=== PATIENT | male | born 1960 | race Caucasian/White ===

== ENCOUNTER 2019-02-18 12:25 | Emergency (ER) | payer OTHER ==
[~2019-02-18] VITALS: Ht 177.8 cm; Wt 60.3 kg
--- NOTE | 2019-02-18 13:03 | NUR ---
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
--- NOTE | 2019-02-18 13:14 | NUR ---
PT AMBULATORY WITH SON TO ROOM 21. PT C/O LEFT JAW/TOOTH PAIN FOR APPROX. 1.5 WEEKS. ANTERIOR NECK RED AND LEFT SIDE OF FACE SWOLLEN. MD AT BEDSIDE. PT AAO X 4 PER FAMILY. PT ALSO STATES DIFFICULTY SWALLOWING. PT DRESSED IN GOWN AND ATTACHED TO MONITOR. CALL LIGHT WITHIN REACH, SIDERAILS X [address], FAMILY AT BEDSIDE.
[2019-02-18] MEDS ORDERED: SODIUM CHLORIDE FLUSH 10ML SYR IVF ONE (13:30)
[2019-02-18 13:48] LABS: BASOPHILS # (AUTO) 0.03 x10^3/uL (0-0.1); BASOPHILS % (AUTO) 0 % (0-1); EOSINOPHILS # (AUTO) 0.01 x10^3/uL (0-0.4); EOSINOPHILS % (AUTO) 0 % (1-7); LYMPHOCYTES # (AUTO) 0.97 x10^3/uL (1-3.4); LYMPHOCYTES % (AUTO) 13 % (22-44); MD NO; MEAN CORPUSCULAR HEMOGLOBIN 29.5 pg (27.5-34.5); MEAN CORPUSCULAR HGB CONC 32.1 g/dL (33.2-36.2); MEAN CORPUSCULAR VOLUME 91.7 fL (81-97); MEAN PLATELET VOLUME 10.2 fL (7.4-10.4); MONOCYTES # (AUTO) 0.84 x10^3/uL (0.2-0.8); MONOCYTES % (AUTO) 12 % (2-9); NEUTROPHILS % (AUTO) 75 % (42-75); PLATELET COUNT 147 x10^3/uL (130-400); RED BLOOD COUNT 4.69 x10^6/uL (4.38-5.82); RED CELL DISTRIBUTION WIDTH 16.8 % (9.4-14.8)
[2019-02-18 13:58] LABS: ALBUMIN 3.5 g/dL (3.4-5.0); ANION GAP 8 mmol/L (5-15); CALCIUM 8.7 mg/dL (8.5-10.1); CHLORIDE 109 mmol/L (98-107); CREATININE 1.21 mg/dL (0.7-1.3)
--- NOTE | 2019-02-18 14:32 | NUR ---
SPOKE WITH CT REGARDING CT SCAN, CT STATES DELAY.
--- NOTE | 2019-02-18 14:48 | NUR ---
PT AMBULATED TO RESTROOM WITH STEADY GAIT.
--- NOTE | 2019-02-18 14:50 | NUR ---
PT TO CT.
--- NOTE | 2019-02-18 15:03 | NUR ---
BREAK RN: PT UPRIGHT ON GURNEY AWAKE & COMFORTABLE, RESPONDS APPROP TO STAFF, NAD, COMFORT MEASURES PROVIDED, CALL LIGHT WITHIN REACH.
[2019-02-18] MEDS ORDERED: OMNIPAQUE 350 MG/ML, 100ML BOTTLE ONE (15:36)
--- NOTE | 2019-02-18 15:53 | NUR ---
ALL RESULTS BACK AT THIS TIME, CHART UP FOR RECHECK.
--- NOTE | 2019-02-18 16:00 | NUR ---
MD AT BEDSIDE TO DISCUSS TEST RESULTS. NEW ORDERS RECEIVED.
[2019-02-18 16:09] VITALS: BP 158/97
[2019-02-18] MEDS ORDERED: CEFTRIAXONE PMX 1GM/50ML 50 ML ONE (16:11)
--- NOTE | 2019-02-18 16:17 | NUR ---
PT MEDICATED PER MD ORDER, PLAN TO DISCHARGE HOME WHEN IV ABX ARE COMPLETED.
[2019-02-18] MEDS ORDERED: CEFTRIAXONE PMX 1GM/50ML 50 ML IVPB ONE (16:30)
--- NOTE | 2019-02-18 16:36 | NUR ---
PE MEDICATED PER MD ORDER, AWAITING D/C PAPERWORK.
--- NOTE | 2019-02-18 16:54 | NUR ---
Patient/Caregiver given discharge instructions and they have confirmed that they understand the instructions. Patient ambulatory with steady gait.
== END 2019-02-18 16:55 | disposition home or self-care (01) ==
LOC: ED 15:38
DX: L03.221 Cellulitis of neck (principal); K08.89 Other specified disorders of teeth and supporting structures; M19.90 Unspecified osteoarthritis, unspecified site; I10 Essential (primary) hypertension; M10.9 Gout, unspecified; G20 Parkinson's disease; Z87.891 Personal history of nicotine dependence
CPT/HCPCS: 36415; 70487; 70491; 80048; 82040; 85025; 96365; 99284; J0696; Q9967

== ENCOUNTER 2019-03-07 22:38 | Emergency (ER) | payer OTHER ==
[~2019-03-07] VITALS: Ht 172.7 cm; Wt 64.0 kg
--- NOTE | 2019-03-07 23:00 | NUR ---
ASSESSMENT MADE. ERP AT BEDSIDE.
[2019-03-07] MEDS ORDERED: LORazepam 2 MG/ML, 1ML ONE (23:13)
[2019-03-07] MEDS ORDERED: LISI-167 PO (23:23)
[2019-03-07] MEDS ORDERED: PANT40TA5 PO (23:23)
[2019-03-07] MEDS ORDERED: CARB1TAB22 PO (23:23)
[2019-03-07] MEDS ORDERED: ATEN25TA PO (23:23)
[2019-03-07] MEDS ORDERED: LORazepam 2 MG/ML, 1ML IM ONE (23:30)
[2019-03-07 23:32] LABS: ALANINE AMINOTRANSFERASE 11 U/L (12-78); ALBUMIN 3.8 g/dL (3.4-5.0); ANION GAP 10 mmol/L (5-15); CALCIUM 9.1 mg/dL (8.5-10.1); CHLORIDE 107 mmol/L (98-107); CREATININE 1.31 mg/dL (0.7-1.3)
[2019-03-07 23:37] LABS: ALKALINE PHOSPHATASE 90 U/L (45-117); BASOPHILS # (AUTO) 0.04 x10^3/uL (0-0.1); BASOPHILS % (AUTO) 1 % (0-1); EOSINOPHILS # (AUTO) 0.16 x10^3/uL (0-0.4); EOSINOPHILS % (AUTO) 2 % (1-7); LYMPHOCYTES # (AUTO) 1.44 x10^3/uL (1-3.4); LYMPHOCYTES % (AUTO) 18 % (22-44); MD NO; MEAN CORPUSCULAR HEMOGLOBIN 30.4 pg (27.5-34.5); MEAN CORPUSCULAR HGB CONC 33.1 g/dL (33.2-36.2); MEAN CORPUSCULAR VOLUME 91.7 fL (81-97); MEAN PLATELET VOLUME 9.9 fL (7.4-10.4); MONOCYTES # (AUTO) 0.79 x10^3/uL (0.2-0.8); MONOCYTES % (AUTO) 10 % (2-9); NEUTROPHILS # (AUTO) 5.48 x10^3/uL (1.8-6.8); NEUTROPHILS % (AUTO) 69 % (42-75); PLATELET COUNT 261 x10^3/uL (130-400); RED BLOOD COUNT 4.46 x10^6/uL (4.38-5.82); RED CELL DISTRIBUTION WIDTH 15.8 % (9.4-14.8); TOTAL PROTEIN 7.4 g/dL (6.4-8.2); TROPONIN I < 0.015 ng/mL (0.000-0.045)
--- NOTE | 2019-03-08 00:15 | NUR ---
PT ASSISTED TO RESTROOM IN WHEELCHAIR.
[2019-03-08 01:09] VITALS: BP 145/82
--- NOTE | 2019-03-08 01:10 | NUR ---
Patient/Caregiver given discharge instructions and they have confirmed that they understand the instructions. Patient ambulatory with steady gait.
== END 2019-03-08 01:12 | disposition home or self-care (01) ==
LOC: ED 22:59
DX: G20 Parkinson's disease (principal); G25.0 Essential tremor; I10 Essential (primary) hypertension; Z87.891 Personal history of nicotine dependence
CPT/HCPCS: 36415; 80053; 84443; 84484; 85025; 96372; 99283; J2060

== ENCOUNTER 2020-04-07 21:53 | Inpatient (IN) | payer OTHER ==
[~2020-04-07] VITALS: Ht 175.3 cm; Wt 61.0 kg
[~2020-04-07 21:53] MED LIST: ATEN25TA PO; CARB1TAB22 PO; LISI-167 PO; PANT40TA6 PO
--- NOTE | 2020-04-07 22:00 | NUR ---
59 year old male to ED with family member for ingestion of Parkinson medication and CBD oil. According to family, he ingested 20 pills of Carb/levodopa and CBD oil. He has told his family that he is tired of dealing with Parkinsons. Airway patent, patient appears in no apparent distress at this time. monitors in place. Family at bedside. Labs in process. Poison control center contacted @ [phone]. They recommended airwway protection, IVF for hypotension, and Obs admit. Case # [id number]. Recommended call back if complications arise.
[2020-04-07] MEDS ORDERED: MIRT15TA94 PO (22:14)
[2020-04-07 22:15] LABS: BASOPHILS # (AUTO) 0.01 x10^3/uL (0-0.1); BASOPHILS % (AUTO) 0 % (0-1); EOSINOPHILS # (AUTO) 0.16 x10^3/uL (0-0.4); EOSINOPHILS % (AUTO) 2 % (1-7); LYMPHOCYTES % (AUTO) 12 % (22-44); MD NO; MEAN CORPUSCULAR HEMOGLOBIN 29.9 pg (27.5-34.5); MEAN CORPUSCULAR HGB CONC 33.3 g/dL (33.2-36.2); MEAN CORPUSCULAR VOLUME 89.7 fL (81-97); MEAN PLATELET VOLUME 9.6 fL (7.4-10.4); MONOCYTES # (AUTO) 1.02 x10^3/uL (0.2-0.8); MONOCYTES % (AUTO) 10 % (2-9); NEUTROPHILS # (AUTO) 7.97 x10^3/uL (1.8-6.8); NEUTROPHILS % (AUTO) 76 % (42-75); PLATELET COUNT 250 x10^3/uL (130-400); RED BLOOD COUNT 4.23 x10^6/uL (4.38-5.82); RED CELL DISTRIBUTION WIDTH 15.1 % (9.4-14.8)
[2020-04-07 22:27] LABS: ALANINE AMINOTRANSFERASE 7 U/L (12-78); ALBUMIN 3.5 g/dL (3.4-5.0); ANION GAP 10 mmol/L (5-15); CALCIUM 8.3 mg/dL (8.5-10.1); CHLORIDE 110 mmol/L (98-107); CREATININE 1.21 mg/dL (0.7-1.3); SALICYLATE LEVEL 9.1 mg/dL (2.8-20.0)
[2020-04-07 22:38] LABS: ALKALINE PHOSPHATASE 83 U/L (45-117); BILIRUBIN,TOTAL 2.5 mg/dL (0.2-1.0); TOTAL PROTEIN 6.9 g/dL (6.4-8.2)
--- NOTE | 2020-04-07 22:48 | NUR ---
Patient tachypnic but airway patent. VSS. GFamily at bedside. Will continue to monitor.
[2020-04-07] MEDS ORDERED: LORazepam 2 MG/ML, 1ML ONE (23:20)
[2020-04-07] MEDS ORDERED: LORazepam 2 MG/ML, 1ML IVPush ONE (23:30)
--- NOTE | 2020-04-07 23:35 | NUR ---
Patient's O2 sat dropped to 87% on RA. Patient was pulled up in bed, O2 placed via nasal canula, and O2 sat improved to 100%. Patient appears in no apparent distress. Family at bedside. Will continue to monitor.
[2020-04-08] MEDS ORDERED: ONDANSETRON 2MG/ML, 2ML IVPush PRN
[2020-04-08 00:41] LABS: TROPONIN I < 0.015 ng/mL (0.000-0.045)
--- NOTE | 2020-04-08 01:02 | NUR ---
PATIENT RESTING IN NO APPARENT DISTRESS. REPORT GIVEN TO POONAM. AWAITING TRANSPORT TO TELE
[2020-04-08] MEDS ORDERED: SODIUM CHLORIDE 0.9% 500 ML IV SCH (01:03)
[2020-04-08] MEDS ORDERED: ONDANSETRON 2MG/ML, 2ML ONE (01:12)
[2020-04-08] MEDS ORDERED: MORPHINE SULFATE 4 MG/ML, 1ML ONE (01:13)
[2020-04-08 01:20] VITALS: BP 79/54
[2020-04-08] MEDS: HEPARIN 5,000 UNITS/ML, 1ML SQ SCH ×3 (03:27→20:37)
[2020-04-08 05:03] LABS: TROPONIN I < 0.015 ng/mL (0.000-0.045)
[2020-04-08 05:30] VITALS: BP 96/63
[2020-04-08 07:05] VITALS: BP 99/60
[2020-04-08] MEDS: LACTATED RINGERS 1,000 ML IV SCH ×2 (09:00→18:42)
[2020-04-08 09:29] VITALS: BP 111/71
[2020-04-08 10:38] LABS: AMPHETAMINE SCREEN, URINE Negative (Negative); BARBITURATE SCREEN, URINE Negative (Negative); BENZODIAZEPINE SCREEN, URINE Negative (Negative); CANNABINOID SCREEN, URINE Positive (Negative); COCAINE SCREEN, URINE Negative (Negative); METHADONE SCREEN, URINE Negative (Negative); OPIATE SCREEN, URINE Negative (Negative)
--- NOTE | 2020-04-08 13:16 | NUR ---
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
[2020-04-08 13:20] VITALS: BP 133/78
[2020-04-08] MEDS ORDERED: ENTA200T22 PO (15:51)
[2020-04-08] MEDS ORDERED: LORazepam 2 MG/ML, 1ML IVPush ONE (20:00)
[2020-04-08 20:14] VITALS: BP 145/77
[2020-04-09 00:08] VITALS: BP 112/76
[2020-04-09] MEDS ORDERED: LORazepam 2 MG/ML, 1ML IVPush ONE (03:00)
[2020-04-09] MEDS: LACTATED RINGERS 1,000 ML IV SCH ×2 (04:21→15:47)
[2020-04-09] MEDS: HEPARIN 5,000 UNITS/ML, 1ML SQ SCH ×3 (04:21→20:51)
[2020-04-09 05:44] LABS: BASOPHILS # (AUTO) 0.02 x10^3/uL (0-0.1); BASOPHILS % (AUTO) 0 % (0-1); EOSINOPHILS # (AUTO) 0.04 x10^3/uL (0-0.4); EOSINOPHILS % (AUTO) 0 % (1-7); LYMPHOCYTES # (AUTO) 0.79 x10^3/uL (1-3.4); LYMPHOCYTES % (AUTO) 8 % (22-44); MD NO; MEAN CORPUSCULAR HGB CONC 33.2 g/dL (33.2-36.2); MEAN CORPUSCULAR VOLUME 90.3 fL (81-97); MEAN PLATELET VOLUME 9.9 fL (7.4-10.4); MONOCYTES # (AUTO) 0.56 x10^3/uL (0.2-0.8); MONOCYTES % (AUTO) 6 % (2-9); NEUTROPHILS # (AUTO) 8.32 x10^3/uL (1.8-6.8); NEUTROPHILS % (AUTO) 86 % (42-75); PLATELET COUNT 214 x10^3/uL (130-400); RED BLOOD COUNT 4.41 x10^6/uL (4.38-5.82); RED CELL DISTRIBUTION WIDTH 15.3 % (9.4-14.8)
[2020-04-09 06:01] LABS: CHLORIDE 115 mmol/L (98-107)
[2020-04-09 06:06] LABS: ALANINE AMINOTRANSFERASE 12 U/L (12-78); ALBUMIN 3.6 g/dL (3.4-5.0); ALKALINE PHOSPHATASE 81 U/L (45-117); ANION GAP 5 mmol/L (5-15); BILIRUBIN,TOTAL 1.4 mg/dL (0.2-1.0); CREATININE 0.91 mg/dL (0.7-1.3); TOTAL PROTEIN 6.8 g/dL (6.4-8.2)
[2020-04-09 06:25] LABS: CALCIUM 9.1 mg/dL (8.5-10.1)
[2020-04-09 07:08] VITALS: BP 156/85
[2020-04-09 16:00] VITALS: BP 145/78
[2020-04-09 18:30] VITALS: BP 150/84
[2020-04-10] VITALS: BP 154/86
[2020-04-10] MEDS: LACTATED RINGERS 1,000 ML IV SCH ×2 (01:46→11:00)
[2020-04-10] MEDS: ACETAMINOPHEN 325 MG TABLET PO PRN ×3 (01:46→17:09)
[2020-04-10] MEDS: HEPARIN 5,000 UNITS/ML, 1ML SQ SCH ×3 (04:47→20:36)
[2020-04-10 09:21] VITALS: BP 145/77
[2020-04-10] MEDS: TAMSULOSIN 0.4 MG CAP.ER.24H PO SCH (11:14)
[2020-04-10] MEDS: ALLOPURINOL 300 MG TABLET PO SCH (11:15)
[2020-04-10 14:35] VITALS: BP 163/89
[2020-04-10] MEDS: MIRTAZAPINE 15 MG TABLET PO SCH (20:36)
[2020-04-10] MEDS: COLCHICINE 0.6 MG CAPSULE PO SCH (20:36)
[2020-04-10 20:52] VITALS: BP 151/84
[2020-04-11 01:23] VITALS: BP 169/99
[2020-04-11] MEDS: ACETAMINOPHEN 325 MG TABLET PO PRN ×2 (03:57→23:30)
[2020-04-11] MEDS: HEPARIN 5,000 UNITS/ML, 1ML SQ SCH ×3 (03:57→19:49)
[2020-04-11 06:38] VITALS: BP 143/82
[2020-04-11] MEDS: COLCHICINE 0.6 MG CAPSULE PO SCH (08:31)
[2020-04-11] MEDS: TAMSULOSIN 0.4 MG CAP.ER.24H PO SCH (08:32)
[2020-04-11] MEDS: ALLOPURINOL 300 MG TABLET PO SCH (08:32)
[2020-04-11] MEDS: CARBIDOPA/LEVODOPA 25 MG/100 MG TABLET PO SCH ×3 (11:12→21:11)
[2020-04-11 13:45] VITALS: BP 163/88
--- NOTE | 2020-04-11 15:36 | NUR ---
SOFT TEXTURE/THIN LIQUIDS - ONLY FEED WHEN AWAKE AND ALERT - PAD HAND PLACED SWALLOW PRECAUTION SIGN AT HOB Addendum: 04/11/20 at 1536 by Miracle ESTRADA Amended: Links added.
[2020-04-11] MEDS: ENTACAPONE 200 MG TABLET PO SCH ×2 (17:20→21:11)
[2020-04-11 19:20] VITALS: BP 125/80
[2020-04-11] MEDS ORDERED: COLCHICINE 0.6 MG CAPSULE PO SCH (21:00)
[2020-04-11] MEDS: MIRTAZAPINE 15 MG TABLET PO SCH (21:11)
[2020-04-12 01:34] VITALS: BP 130/88
[2020-04-12] MEDS: HEPARIN 5,000 UNITS/ML, 1ML SQ SCH ×2 (03:42→13:31)
[2020-04-12] MEDS: TAMSULOSIN 0.4 MG CAP.ER.24H PO SCH (08:05)
[2020-04-12] MEDS: CARBIDOPA/LEVODOPA 25 MG/100 MG TABLET PO SCH ×2 (08:05→16:05)
[2020-04-12] MEDS: ENTACAPONE 200 MG TABLET PO SCH ×2 (08:05→16:05)
[2020-04-12] MEDS: ALLOPURINOL 300 MG TABLET PO SCH (08:05)
[2020-04-12 08:12] VITALS: BP 146/94
[2020-04-12] MEDS ORDERED: ALLO300T PO (10:08)
[2020-04-12] MEDS ORDERED: CARB1TAB22 PO (10:08)
[2020-04-12] MEDS ORDERED: TAMS-11 PO (10:08)
[2020-04-12 14:14] VITALS: BP 158/95
== END 2020-04-12 16:32 | disposition home or self-care (01) | DRG 917 ==
LOC: ED 04-08 01:05 → EDIP 04-08 01:17 → 5SO 04-08 01:24 → 4NE 04-11 13:20
PROVIDERS: ADMIT Family Medicine; ATTEND Hospitalist
DX: T50.912A Poisoning by multiple unspecified drugs, medicaments and biological substances, intentional self-harm, initial encounter (principal); E43 Unspecified severe protein-calorie malnutrition; Z68.1 Body mass index [BMI] 19.9 or less, adult; M10.9 Gout, unspecified; I10 Essential (primary) hypertension; G24.9 Dystonia, unspecified; G20 Parkinson's disease; Z79.899 Other long term (current) drug therapy; Z91.81 History of falling; F32.9 Major depressive disorder, single episode, unspecified; F12.90 Cannabis use, unspecified, uncomplicated; D64.9 Anemia, unspecified; Y92.89 Other specified places as the place of occurrence of the external cause; R33.9 Retention of urine, unspecified
CPT/HCPCS: 36415; 80053; 80307; 84443; 84484; 85025; 93005; 96374; 96376; 99285; G0378; J1644; J2060; J7030; J7120; J7512

== ENCOUNTER 2020-08-16 13:32 | Emergency (ER) | payer OTHER ==
[~2020-08-16] VITALS: Ht 177.8 cm; Wt 130.0 kg
[~2020-08-16 13:32] MED LIST changes: +ALLO300T PO; +ENTA200T22 PO; +MIRT15TA94 PO; +TAMS-11 PO
--- NOTE | 2020-08-16 13:58 | NUR ---
TASK RN: REPORT FROM JAHAIRA SOLORZANO.
[2020-08-16] MEDS ORDERED: DIAZEPAM 5 MG/ML, 2ML ONE (14:14)
[2020-08-16] MEDS ORDERED: SODIUM CHLORIDE 0.9% 1,000ML IVBOLUS ONE (14:30)
[2020-08-16] MEDS ORDERED: DIAZEPAM 5 MG/ML, 10ML VIAL IVPush ONE (14:30)
[2020-08-16] MEDS ORDERED: SODIUM CHLORIDE FLUSH 10ML SYR IVF ONE (14:30)
[2020-08-16 14:31] LABS: BASOPHILS % (AUTO) 0 % (0-1); EOSINOPHILS % (AUTO) 0 % (1-7); LYMPHOCYTES % (AUTO) 7 % (22-44); MEAN CORPUSCULAR HGB CONC 33.5 g/dL (33.2-36.2); MEAN PLATELET VOLUME 9.6 fL (7.4-10.4); MONOCYTES % (AUTO) 7 % (2-9); NEUTROPHILS % (AUTO) 85 % (42-75); PLATELET COUNT 245 x10^3/uL (130-400); RED BLOOD COUNT 4.74 x10^6/uL (4.38-5.82); RED CELL DISTRIBUTION WIDTH 13.4 % (9.4-14.8)
[2020-08-16 14:36] LABS: ALANINE AMINOTRANSFERASE 8 U/L (12-78); ALBUMIN 3.8 g/dL (3.4-5.0); ANION GAP 5 mmol/L (5-15); CALCIUM 9.4 mg/dL (8.5-10.1); CHLORIDE 112 mmol/L (98-107); CREATININE 1.33 mg/dL (0.7-1.3); MD NO
[2020-08-16 14:38] LABS: ALKALINE PHOSPHATASE 137 U/L (45-117); BILIRUBIN,TOTAL 0.9 mg/dL (0.2-1.0); TOTAL PROTEIN 7.5 g/dL (6.4-8.2)
[2020-08-16 15:43] LABS: MICROSCOPIC NOT IND
[2020-08-16 16:32] VITALS: BP 146/78
== END 2020-08-16 16:38 | disposition home or self-care (01) ==
LOC: ED 16:30
DX: G20 Parkinson's disease (principal); N28.9 Disorder of kidney and ureter, unspecified
CPT/HCPCS: 36415; 80053; 81003; 85025; 96361; 96374; 99283; J7030